=== PATIENT | male | born 1970 | race African-American/Black ===

== ENCOUNTER 2018-05-26 07:56 | Emergency (ER) | payer OTHER ==
--- NOTE | 2018-05-26 08:37 | CT ---
ead CT without contrast 05/26/2018: COMPARISON: None HISTORY: Injury, trauma, pain TECHNIQUE: Axial CT imaging at 5 mm intervals from vertex through skull base without contrast. Juarez l and sagittal reformatted imaging obtained. FINDINGS: There is a focus of subcutaneous gas adjacent to the anterior aspect of the zygomatic arch on the right suggesting a laceration in this region. There is adjacent subcutaneous fat stranding and skin thickening consistent with recent trauma. There is wall thickening and opacification of the imaged portion of the right maxillary sinus suggest ing chronic sinusitis. The imaged paranasal sinuses and mastoid air cells appear otherwise unremarkable. There is no intracranial hemorrhage, midline shift, mass effect, or ventricular enlargement. No displaced calvarial fracture noted. IMPRESSION: Soft tissue swelling and subcutaneous gas on the right consistent with facial trauma/lace ration. There is no associated intracranial hemorrhage or displaced calvarial fracture.
[2018-05-26] MEDS ORDERED: Adacel (T-DAP) 0.5 ML SYRINGE ONE (08:43)
[2018-05-26] MEDS ORDERED: Lidocaine 1% w/Epinephrine 1:100K 30 ML VIAL ONE (08:43)
--- NOTE | 2018-05-26 08:49 | CT ---
FCT of the facial bones: 05/26/2018 TECHNIQUE: Axial CT imaging at 2.5 mm intervals through the facial bones with coronal and sagittal re formatted imaging. HISTORY: Facial trauma FINDINGS: The frontal sinuses, the ethmoid air cells, the left maxillary sinus, and bilateral sphenoi d sinuses are clear. The right maxillary sinus demonstrates wall thickening and opacification, sugges ting chronic right maxillary sinusitis. Soft tissue swelling, skin thickening, subcutaneous fat stranding, and a focus of subcutaneous gas no javier near the anterior aspect of the zygomatic arch along the lateral aspect of the orbit on the right , evidence of facial trauma. In addition, there is irregular skin thickening and subcutaneous fat str anding adjacent to the midline and right para midline mandible consistent with an area of laceration. No evidence for a mandibular fracture. The temporomandibular joint appears normal bilaterally. The nasal bones, zygomatic arches, and the pterygoid plates are intact. No acute fracture is seen involving the medial orbital wall on either side. The orbital floor on the left appears intact. There is mild irregularity involving the orbital floor on the right with slight depression which coul d be secondary to volume loss associated with chronic right maxillary sinusitis. Orbital floor fractu re is a possibility as well, age indeterminate. Mild depression with acute orbital floor fracture on right cannot be fully excluded without comparison imaging. The masseter muscle on the right is enlarg ed, suggesting posttraumatic acute muscular contusion. IMPRESSION: Focal areas of soft tissue injury noted lateral to the right orbit and adjacent to the ma ndible on the right as above. There are findings suggesting chronic sinusitis of right maxillary sinu s and age indeterminant orbital floor fracture is suspected on the right as detailed above.
[2018-05-26] MEDS ORDERED: HYDROcodone/Acetaminophen 5/325 mg Tablet ONE (08:59)
[2018-05-26] MEDS ORDERED: Triple Antibiotic Oint 1 GM Packet ONE (11:14)
== END 2018-05-26 11:41 | disposition home or self-care (01) ==
LOC: NAV ERS 07:56
DX: S06.0X0A Concussion without loss of consciousness, initial encounter (principal); S01.81XA Laceration without foreign body of other part of head, initial encounter; S02.81XA Fracture of other specified skull and facial bones, right side, initial encounter for closed fracture; Z79.899 Other long term (current) drug therapy; Z87.891 Personal history of nicotine dependence; W20.8XXA Other cause of strike by thrown, projected or falling object, initial encounter
CPT/HCPCS: 12011; 12052; 70450; 70486; 90471; 90715; J2001